=== PATIENT | male | born 1980 | race Caucasian/White ===

== ENCOUNTER → 2020-05-20 | Outpatient (CLI) | payer BC ==
[~2020-05-20] MED LIST: MECL-124 PO; METH4TAB PO; PRM25T PO; SILD100T PO
[2020-05-20 12:47] LABS: HEMOGLOBIN 15.8 G/DL (13.3-17.7); MEAN PLATELET VOLUME 10.8 FL (7.4-10.4)
[2020-05-20 13:08] LABS: ALANINE AMINOTRANSFERASE 49 U/L (0-55); ALBUMIN 4.8 GM/DL (3.2-4.5); ALKALINE PHOSPHATASE 76 U/L (40-136); BILIRUBIN,TOTAL 0.9 MG/DL (0.1-1.0); BUN/CREATININE RATIO 15; CALCIUM 10.2 MG/DL (8.5-10.1); CARBON DIOXIDE 29 MMOL/L (21-32); CHLORIDE 101 MMOL/L (98-107); CREATININE SERUM 1.15 MG/DL (0.60-1.30); GFR ESTIMATED > 60; GLUCOSE 79 MG/DL (70-105); POTASSIUM 4.5 MMOL/L (3.6-5.0); SODIUM 138 MMOL/L (135-145); TOTAL PROTEIN 7.9 GM/DL (6.4-8.2)
== END ==
LOC: LAB FS 12:09
PROVIDERS: ATTEND Family Medicine
DX: F41.1 Generalized anxiety disorder (principal); N52.9 Male erectile dysfunction, unspecified
CPT/HCPCS: 36415; 80053; 84402; 84403; 84443; 85027

== ENCOUNTER → 2020-09-28 | Outpatient (CLI) | payer BC | LOC: LAB FS 09:11 | PROVIDERS: ATTEND Family Medicine | DX: R19.7 Diarrhea, unspecified (principal) | CPT/HCPCS: 87328; 87329 ==

== ENCOUNTER → 2021-02-24 | Outpatient (CLI) | payer BC ==
--- NOTE | 2021-02-24 13:22 | Diagnostic Imaging Report ---
INDICATION: SWELLING OF 1ST METATARSAL JOINT OF HALLUX LT FOOT, EFFUSION LT FOOT TECHNIQUE: 4 views of the left great toe CORRELATION STUDY: None FINDINGS: There is normal alignment and appearance of the osseous structures of the toe. The joint spaces are maintained. There is no acute fracture. Bipartite medial sesamoid bone. The soft tissues are unremarkable. IMPRESSION: 1. Negative for acute bony abnormality of the left great toe. Dictated by: Dictated on workstation # [id number]
== END ==
LOC: RAD FS 08:47
PROVIDERS: ATTEND Family Medicine
DX: M25.475 Effusion, left foot (principal)
CPT/HCPCS: 36415; 73660; 84550

== ENCOUNTER 2021-11-26 14:53 | Emergency (ER) | payer SELFPAY ==
[~2021-11-26] VITALS: Ht 177 cm; Wt 85.2 kg
[2021-11-26 15:08] VITALS: BP 137/79
--- NOTE | 2021-11-26 15:24 | ED EENT ---
History of Present Illness General Chief Complaint: Dental Problems/Pain Stated Complaint: DENTAL PAIN Nursing Triage Note: Patient complains of upper right side dental pain that started yesterday. Source: patient History of Present Illness Date Seen by Provider: Nov 26, 2021 Time Seen by Provider: 15:13 Initial Comments 41-year-old male presenting with complaints of upper right posterior dental pain. He states any recently had several fillings done. He states that he had similar pain on the left side and ended up finding out that the tooth was cracked down to the right and they had to pull it. His pain started yesterday and was. After that it was not responding to Tylenol, ibuprofen, eyao-bvm-iolq ter dental pain clove based medication. Since his dentist is not available until at least Sunday he came to the emergency department to see if there is anything that could be done to help with his pain. He denies fever, chills, nausea, vomiting. He has pain to the right side of his face. He denies any direct trauma or injury. Timing/Duration: abrupt, yesterday Severity: severe Location: dental Prearrival Treatment: over the counter meds Modifying Factors: Worse With Other (Chewing and eating makes the pain worse) Associated Symptoms: No change in hearing, No cough, No drooling, No ear drainage; facial pain/swelling (Right-sided face pain); No fever, No malaise, No nasal congestion/drainage, No poor fluid intake, No poor solids intake, No sinus infection, No sore throat; tooth pain; No voice change Allergies and Home Medications Allergies Coded Allergies: No Known Drug Allergies (Unverified , 06/05/14) Patient Home Medication List Home Medication List Reviewed: Yes Amoxicillin/Potassium Clav (Amox Tr-K Clv 875-125 mg Tab) 875 Mg-125 Mg Tablet, 1 EACH PO BID Prescribed by: PRIMO DELACRUZ on 11/26/21 1543 Hydrocodone/Acetaminophen (Hydrocodone-Acetamin 5-325 mg) 5 Mg-325 Mg Tablet, 1 TAB PO Q4H PRN for PAIN-SEVERE (8-10) Prescribed by: PRIMO DELACRUZ on 11/26/21 1544 Meclizine Hcl (Antivert) 25 Mg Tab, 1-2 TAB PO Q 4-6 HOURS PRN for DIZZINESS Prescribed by: MIKE GOMEZ on 06/05/142239 Methylprednisolone (Medrol Dose Pack) 4 Mg/Dose-Pack Tab.ds.pk, 1 PKT PO UD Prescribed by: MIKE GOMEZ on 06/05/142239 Promethazine Hcl (Phenergan Tab) 25 Mg Tab, 25 MG PO, (Reported) Entered as Reported by: ANDREZ PALOMINO on 06/05/142143 Sildenafil Citrate (Viagra) 100 Mg Tablet, 100 MG PO, (Reported) Entered as Reported by: ANDREZ PALOMINO on 06/05/142143 Review of Systems Review of Systems Constitutional: No chills, No fever Eyes: No Symptoms Reported Ears: No Symptoms Reported Nose: no symptoms reported Mouth: see HPI Throat: no symptoms reported Respiratory: no symptoms reported Cardiovascular: no symptoms reported Gastrointestinal: no symptoms reported Musculoskeletal: no symptoms reported Skin: no symptoms reported Neurological: See HPI Past Oqhmtpl-Xzsjyd-Dtveqc Hx Patient Social History Tobacco Use?: No Use of E-Cig and/or Vaping dev: No Substance use?: No Alcohol Use?: No Pt feels they are or have been: Unable to obtain Immunizations Up To Date PED Vaccines UTD: No Seasonal Allergies Seasonal Allergies: No Past Medical History Reproductive Disorders: No Sexually Transmitted Disease: No HIV/AIDS: No Adverse Reaction/Blood Tranf: No Physical Exam Vital Signs Vital Signs - First Documented 11/26/21 15:08 Temp 36.0 Pulse 79 Resp 16 B/P (MAP) 137/79 (98) Pulse Ox 99 Height, Weight, BMI Height: 5'10" Weight: 194lbs. oz. 87.961039mb; 27.00 BMI Method:Stated General Appearance: WD/WN, no apparent distress Eyes: bilateral eye PERRL, bilateral eye EOMI Mouth/Throat: pharynx normal, dental tenderness (Right upper posterior dental pain in the premolar. There is no gum swelling or drainage.); No trismus Neck: non-tender, full range of motion, supple, normal inspection Cardiovascular: normal peripheral pulses Neurologic/Psychiatric: alert, oriented x 3 Skin: normal color, warm/dry Progress/Results/Core Measures Results/Orders Vital Signs/I&O 11/26/21 15:08 Temp 36.0 Pulse 79 Resp 16 B/P (MAP) 137/79 (98) Pulse Ox 99 Blood Pressure Mean: 98 Progress Progress Note : Progress Note Well treated with antibiotic and pain medicine. Patient stated he would continue with [id number]-qlhyxwi ibuprofen. Encouraged to follow-up with dentist as soon as possible. Departure Impression Primary Impression: Pain, dental Disposition: HOME, SELF-CARE Condition: Stable Departure-Patient Inst. Decision time for Depature: 15:40 Referrals: IVELISSE CARTER MD (PCP) Primary Care Physician Patient Instructions: Dental Pain ED, Acute Pain, Adult (DC) Add. Discharge Instructions: Take antibiotic to treat for possible infection and make sure the dentist will be able to perform any needed procedures when you follow up early this upcoming week. For inflammation and pain take Ibuprofen 800 mg every 8 hours. For severe pain may take Hydrocodone/Acetaminophen 5/325 mg. This is a narcotic so you should not drive after taking it and it can cause constipation so conside r taking a laxative to help keep stools soft and regular. Follow up with Dentist Sunday about your tooth. All discharge instructions reviewed with patient and/or family. Voiced understanding. Scripts Hydrocodone/Acetaminophen (Hydrocodone-Acetamin 5-325 mg) 5 Mg-325 Mg Tablet 1 TAB PO Q4H PRN for PAIN-SEVERE (8-10) for 3 Days, #18 TAB 0 Refills Prov: PRIMO DELACRUZ MD 11/26/21 Amoxicillin/Potassium Clav (Amox Tr-K Clv 875-125 mg Tab) 875 Mg-125 Mg Tablet 1 EACH PO BID for dental pain/infection for 7 Days, #14 TAB 0 Refills Prov: PRIMO DELACRUZ MD 11/26/21 Images Mouth/Nose 1 - Tenderness (Tender to palpation) PRIMO DELACRUZ MD Nov 26, 2021 15:24
[2021-11-26] MEDS ORDERED: ACHD5005 PO (15:43)
[2021-11-26] MEDS ORDERED: AMOX1TAB12 PO (15:43)
== END 2021-11-26 15:50 | disposition home or self-care (01) ==
LOC: EDUNIT# 14:53 → ER FS 14:55
DX: K08.89 Other specified disorders of teeth and supporting structures (principal)
CPT/HCPCS: 99282